=== PATIENT | male | born 1940 | race Caucasian/White ===

== ENCOUNTER 2019-12-21 13:23 | Day surgery (SDC) | payer MEDICARE, BC ==
[~2019-12-21] VITALS: Ht 185.4 cm; Wt 95.3 kg
[~2019-12-21 13:23] MED LIST: ALLOPURINOL300 MG PO; HYDROCHLOROTHIA25 MG PO; LEVOTHROID25 MCG PO; LOVASTATIN20 MG PO; METOPROLOL SUC100 MG PO
[2019-12-21] MEDS ORDERED: METFORMIN HCL500 M2 PO (13:52)
[2019-12-21] MEDS ORDERED: K-TAB ER20 MEQ PO (13:53)
[2019-12-21] MEDS ORDERED: LIPITOR10 MG PO (13:54)
[2019-12-21] MEDS ORDERED: VITAMIN C500 MG PO (13:55)
[2019-12-21] MEDS ORDERED: VITAMIN B122500 MC1 PO (13:56)
[2019-12-21] MEDS ORDERED: VITAMIN D325 MC3 PO (13:56)
[2019-12-21] MEDS ORDERED: MAGNESIUM400 MG PO (13:56)
[2019-12-21] MEDS ORDERED: LUTEIN 15 MG S1 EACH PO (13:57)
--- NOTE | 2019-12-21 15:33 | NUR ---
12/21/19 1533 Shruthi Jones 1526- PT ARRIVES TO PACU AWAKE AND TALKING. PT REPORTS NO PAIN OR NAUSEA. PT UPDATED THAT HIS PROCEDURE WAS OVER AND HE WAS IN THE RECOVERY ROOM. PT WAS SURPRISED. STATED UNDERSTANDING AND FELL ASLEEP. RESP EVEN AND UNLABORED. OXYGEN SAT HIGH 90'S TO 100% ON 2L VIA NC. 1532- OXYGEN TITRATED OFF.
--- NOTE | 2019-12-23 10:56 | PATH ---
[facility] [address] [place], [place] [address] Signed SPECIMEN(S): A DUODENAL BIOPSY SPECIMEN(S): B ANTRUM/PYLORUS SPECIMEN(S): C DISTAL ESOPHAGUS SPECIMEN(S): D MID ESOPHAGUS SPECIMEN SOURCE: A. DUODENAL BIOPSY B. ANTRUM/PYLORUS C. DISTAL ESOPHAGUS D. MID ESOPHAGUS CLINICAL HISTORY: Dysphagia. Post-op: Hiatal hernia. MICROSCOPIC DESCRIPTION: Histologic sections of all submitted blocks are examined by light microscopy. These findings, together with the gross examination, support the pathologic diagnosis. FINAL PATHOLOGIC DIAGNOSIS: A. Duodenum, biopsy: - Fragments of duodenal mucosa with mild mucosal capillary congestion. - Fragment of gastric oxyntic type mucosa with focal intestinal type glands, see comment. - Negative for increased intraepithelial lymphocytes. - Negative for dysplasia or malignancy. B. Stomach, antrum/pylorus, biopsy: - Antral mucosa with reactive gastropathy. - Negative for Helicobacter organisms on HE stain. - Negative for dysplasia or malignancy. C. Esophagus, distal, biopsy: - Squamous mucosa with minimal chronic inflammation and reactive changes, suggestive of reflux esophagitis. - Negative for intestinal metaplasia, dysplasia, or malignancy. D. Esophagus, mid, biopsy: - Squamous mucosa with no histopathologic abnormality. - Negative for intestinal metaplasia, dysplasia, or malignancy. COMMENT: Regarding specimen A: Two fragments of gastric foveolar lined mucosa with oxyntic type gastric glands are present within the biopsy tissue. 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 Correlation with endoscopic findings is recommended. NAL:cml:C2NR GROSS DESCRIPTION: Four specimens are received in four containers, labeled "RN." A. The specimen, labeled "RN," and designated on the requisition "duodenum biopsy," is received in formalin and consists of two fragments of pink-hernandez tissue (0.3 x 0.2 x 0.1 cm in aggregate). The specimen is submitted entirely in (A1). B. The specimen, labeled "RN," and designated on the requisition "antrum/pylorus biopsy," is received in formalin and consists of two fragments of pink-hernandez tissue (0.5 x 0.3 x 0.2 cm in aggregate). The specimen is submitted entirely in cassette (B1). C. The specimen, labeled "RN," and designated on the requisition "distal esophagus," is received in formalin and consists of one fragment of white-hernandez tissue (0.3 x 0.2 x 0.1 cm). The specimen is submitted entirely in cassette (C1). D. The specimen, labeled "RN," and designated on the requisition "mid esophagus, is received in formalin and consists of four fragments of white-hernandez tissue (0.5 x 0.3 x 0.2 cm in aggregate). The specimen is submitted entirely in cassette (D1). AC (under the direct supervision of a pathologist) The Gross Description was prepared using a voice recognition system. The report was reviewed for accuracy; however, sound-alike word errors, addition and/or deletions may occur. If there is any question about this report, please contact Client Services. PERFORMING LABORATORY: The technical component was performed by [facility], [address] [place] [id number] ([place] [employer] Director: Elizabeth Mosley MD; CLIA# [id number]). Professional interpretation was performed by [facility], [address] [place], [place] [address] (CLIA# [id number]). Diagnostician: Andreia Cancino MD Pathologist Electronically Signed 12/23/2019 Copies: PATIENT NAME: GABRIEL LUNA PATHOLOGY DATE OF : 42 REPORT #: [id number] PHYSICIAN: PRABHAKAR PATHOLOGY PCP: MATHIEU LOYD MD REPORT IS CONFIDENTIAL AND NOT TO BE RELEASED WITHOUT AUTHORIZATION [facility] [address] [facility] [place], [place] [address] Signed ~ PATIENT NAME: GABRIEL LUNA PATHOLOGY DATE OF : 42 REPORT #: [id number] PHYSICIAN: PRABHAKAR AYALA PCP: MATHIEU LOYD MD REPORT IS CONFIDENTIAL AND NOT TO BE RELEASED WITHOUT AUTHORIZATION
--- NOTE | 2019-12-23 12:08 | OR ---
[facility] [address] [place], [place] [address] Signed DATE OF OPERATION: 12/21/2019 SURGEON: Melinda Cerna MD DATE OF PROCEDURE: 12/21/2019 PREOPERATIVE DIAGNOSES: 1. Oropharyngeal dysphagia without clinical reflux symptoms. 2. Weight loss. POSTOPERATIVE DIAGNOSES: 1. No evidence of stricture or obvious eosinophilic esophagitis. 2. Poor flap valve. PROCEDURE: Esophagogastroduodenoscopy with biopsy. ANESTHESIA: Intravenous sedation, fentanyl 100 mcg, Versed 2.75 mg. INDICATION: This 79-year-old white man is a patient of Dr. Kline and has had progressive oropharyngeal dysphagia in recent times. He has had some weight loss now down to 210 pounds from 230. Initially, he was reported to have dysphagia to all foods and liquids. Actually he admits that his dysphagia is mostly to pills. This is new for him, however. He has had no hematemesis. His weight loss is of uncertain etiology going from 230 to 210 pounds. He has no odynophagia. He does not have clinical reflux symptoms or has he ever he says. He has no family history of esophageal or stomach cancer. He is admitted at this time to undergo upper endoscopy to better characterize the problem, understand the risks of bleeding, infection, perforation, and so on. FINDINGS: There is no sign of stricture or neoplasm. Vocal cords were normal. He did not have a mid esophagus to suggest the eosinophilic esophagitis. The biopsies were obtained nevertheless. The stomach and duodenum were normal except for a poor flap valve consistent really with effaced hiatal hernia. He may have silent reflux with resultant spasm accounting for his dysphagia and is uncertain. DESCRIPTION OF PROCEDURE: Electronically Signed By: MELINDA CERNA MD 12/23/19 1208 PATIENT NAME: GABRIEL LUNA OPERATIVE REPORT DATE OF : 42 REPORT #: [id number] PHYSICIAN: MELINDA CERNA MD PCP: MARK KLINE MD REPORT IS CONFIDENTIAL AND NOT TO BE RELEASED WITHOUT AUTHORIZATION [facility] [address] [place], [place] [address] Signed The patient was brought to the endoscopy suite, given topical Hurricaine spray hypopharyngeal anesthesia and placed in the lateral decubitus position. He was given intravenous sedation with full cardiopulmonary monitoring. A bite block was placed. An Olympus video upper endoscope was passed in the hypopharynx and advanced in the esophagus without problem. The vocal cords appeared normal. Esophagus throughout its length and was normal. The scope was passed into the stomach, which was insufflated with air. There was no sign of bile within the stomach. Rugal folds were normal as was the antral motility. Pylorus was normal. Scope was passed through into the duodenum, which was normal. Biopsies were taken of the duodenum to assess for celiac disease. The scope was withdrawn and biopsies taken of the antrum for both SAMARA and pathologic testing. Retroflexed view was undertaken showing an effaced flap valve and with further withdrawal in a J position complete effacement of the GE junction. The scope was straightened, withdrawn and biopsies then taken of the distal esophagus, though there was no evidence of actual esophagitis or stricture. Further withdrawal of scope to the midesophagus allowed for biopsies there, though there appeared to be no clinical or endoscopic evidence of eosinophilic esophagitis. Further withdrawal of scope showed no other findings in particular in the proximal hypopharyngeal area. Scope was removed and the patient was taken to recovery room in good condition. CONCLUDING DIAGNOSIS: Uncertain etiology of his dysphagia. PLAN: We will treat with Prilosec 20 mg p.o. daily. He may have silent reflux with resultant spasm. We will review his pathology report and in particular those of the midesophagus. We will see him back in a few weeks and assess his progress. He may require a video esophagram. He ultimately may be simply to have a functional (motility) problem accounting for his symptoms. MD ALONSO Guzman/MACKENZIEL /[id number] cc: Mark Kline MD Electronically Signed By: MELINDA CERNA MD 12/23/19 1208 PATIENT NAME: GABRIEL LUNA OPERATIVE REPORT DATE OF : 42 REPORT #: [id number] PHYSICIAN: MELINDA CERNA MD PCP: MARK KLINE MD REPORT IS CONFIDENTIAL AND NOT TO BE RELEASED WITHOUT AUTHORIZATION [address] [address] Signed Copies: MARK KLINE MD ~ Electronically Signed By: MELINDA CERNA MD 12/23/19 1208 PATIENT NAME: CHERYLGABRIEL REY OPERATIVE REPORT DATE OF : 42 REPORT #: [id number] PHYSICIAN: MELINDA CERNA MD PCP: MARK KLINE MD REPORT IS CONFIDENTIAL AND NOT TO BE RELEASED WITHOUT AUTHORIZATION
== END 2019-12-21 16:05 | disposition home or self-care (01) ==
LOC: OPS 13:23 → DS 14:45 → OPS 14:45
PROVIDERS: ATTEND Surgery
PROC: 0DB78ZX Excision of Stomach, Pylorus, Via Natural or Artificial Opening Endoscopic, Diagnostic (ICD-10-PCS; 2019-12-21)
PROC: 0DB28ZX Excision of Middle Esophagus, Via Natural or Artificial Opening Endoscopic, Diagnostic (ICD-10-PCS; 2019-12-21)
PROC: 0DB38ZX Excision of Lower Esophagus, Via Natural or Artificial Opening Endoscopic, Diagnostic (ICD-10-PCS; 2019-12-21)
PROC: 0DB98ZX Excision of Duodenum, Via Natural or Artificial Opening Endoscopic, Diagnostic (ICD-10-PCS; principal; 2019-12-21 14:45)
DX: R13.12 Dysphagia, oropharyngeal phase (principal); K20.90 Esophagitis, unspecified without bleeding; K31.9 Disease of stomach and duodenum, unspecified; K31.89 Other diseases of stomach and duodenum; I10 Essential (primary) hypertension; R63.4 Abnormal weight loss; K43.2 Incisional hernia without obstruction or gangrene; Z79.899 Other long term (current) drug therapy; Z87.891 Personal history of nicotine dependence; Z68.27 Body mass index [BMI] 27.0-27.9, adult
CPT/HCPCS: 99153; G0500; J2250; J3010